=== PATIENT | female | born 1975 | race Caucasian/White ===

== ENCOUNTER 2025-02-24 12:53 | Emergency (ER) | payer BC, SELFPAY ==
[2025-02-24 12:58] VITALS: BP 132/87
[2025-02-24 13:02] VITALS: BMI 24.2
[2025-02-24] MEDS: SOLU-MEDROL PF 60 MG IV (13:10)
[2025-02-24] MEDS: PEPCID 20 MG IV (13:11)
--- NOTE | 2025-02-24 15:13 | ED.GENMED ---
History of Present Illness
General
Chief Complaint: Allergic Reaction
Time Seen by Provider: 02/24/25 12:57
History of Present Illness
History of Present Illness:
50-year-old female presents the emergency department for evaluation of widespread rash that began abruptly while grocery shopping today. States she felt a sharp pain to the right upper arm and developed a widespread rash thereafter. She then
experienced a syncopal event and was administered epinephrine by a responding [employer] police officer. Was given a second dose of epinephrine as well as IV Benadryl by EMS. On arrival rash is still present. Denies chest tightness or dyspnea
Review of Systems
Review of Systems
Allergies reviewed?: Yes
All Other Systems: ROS reviewed and negative except as documented in HPI and ROS
Phy Exam
Physical Exam
Physical Exam:
GEN: Well appearing, NAD, WDWN
HEENT: Oral mucosa moist, no scleral icterus, no oropharyngeal edema
Cardiac: Regular rate and rhythm, no murmurs
Lung: No respiratory distress, no tachypnea, lungs clear to auscultation bilaterally
MSK: No gross deformity or injuries
Skin: Good color, no pallor or jaundice, widespread urticarial lesions involving the entire torso and extremities
Neuro: AO x3, moves all extremities freely
Psych: Calm, cooperative
Course
Orders/Labs/Results
Orders:
Orders
02/24/25 13:02
Electrocardiogram (*1) Urgent
Reason for Study: Other
Other Reason for Exam: epi
EKG- Treatment ONCE
Famotidine [Pepcid] 20 mg IV NOW STA
MethylPREDNISolone PF [Solu-Medrol Pf] 60 mg IV NOW STA
Vital Signs
Initial and Last Documented VS:
Initial Vital Signs
Temp Pulse Resp BP Pulse Ox
98.1 F 84 18 132/87 95
02/24/25 12:58 02/24/25 12:58 02/24/25 12:58 02/24/25 12:58 02/24/25 12:58
Last Documented Vital Signs
Temp Pulse Resp BP Pulse Ox
98.1 F 84 18 132/87 95
02/24/25 12:58 02/24/25 12:58 02/24/25 12:58 02/24/25 12:58 02/24/25 15:17
MDM/Problems Addressed
MDM/Problems Addressed:
Patient treated supportively with steroids and antihistamines with rapid improvement. No evidence of anaphylaxis in the ED
*Pulse Oximetry
SaO2: 95
Oxygen Mode of Delivery: Room air
Patient hypoxic: no
*Critical Care Note
Total Time (30-74mins, 75-104mins- exclusive of procedures): Not Applicable
ED Attending Note
-
Portions of this chart may have been created with voice recognition software.� Occasional wrong word or��sound alike� substitutions may have occurred due to the inherent limitations of voice recognition software.
Discharge Plan
Departure
Patient Disposition: Home (Routine Discharge)
Date of Disposition: 02/24/25
Time of Disposition: 15:17
Patient with high blood pressure during this ER visit?: No
Discharge Problem:
Allergic reaction
Instructions: Hives (DC)
Prescriptions:
New
neffy 1 mg/spray (0.1 mL) spray,non-aerosol
1 mg intranasal ONCE Qty: 2 0RF
epinephrine [EpiPen] 0.3 mg/0.3 mL auto-injector
0.3 mg IM ONCE Qty: 1 1RF
Referrals:
Tez Hinton DO [Family Provider, Family Practice]
Interventions
Interventions:
*Risk Screen - Suicide Last Done: 02/24/25 13:33
*General Assessment Last Done: 02/24/25 13:33
*Neglect/Abuse Screening Last Done: 02/24/25 13:33
*ED- Fall Risk Assessment Last Done: 02/24/25 13:33
*Nursing Disposition Last Done: 02/24/25 15:41
ED- Cardiac Assessment Last Done: 02/24/25 13:05
ED- Pulmonary Assessment Last Done: 02/24/25 13:33
ED-Skin Assessment Last Done: 02/24/25 13:04
Discharge Date and Time
Discharge Date/Time: 02/24/25 15:41
Print Language: LAO
== END 2025-02-24 15:41 | disposition home or self-care (01) ==
LOC: EMR 12:53
PROVIDERS: EMERGENCY PHYSICIAN Student in an Organized Health Care Education/Training Program; FAMILY PHYSICIAN Family Medicine
DX: T78.40XA Allergy, unspecified, initial encounter (principal); X58.XXXA Exposure to other specified factors, initial encounter
CPT/HCPCS: 99284; 96374; 96375; 93005